=== PATIENT | female | born 1975 | race Caucasian/White ===

== ENCOUNTER 2016-07-11 05:44 | Day surgery (SDC) | payer MEDICAID, OTHER ==
[2016-07-08 15:50] VITALS: Ht 160 cm; Wt 88.0 kg
[2016-07-11] VITALS (11 sets, daily range): BP systolic 114–147; BP diastolic 73–93; PULSE 63–82; RESP 10–19
[~2016-07-11] VITALS: Ht 160 cm; Wt 88.0 kg
[~2016-07-11 05:44] MED LIST: CEPH-443 PO; IBUP-1542 PO; IBUP800T25 PO; TRAM50TA2 PO
[2016-07-11] MEDS ORDERED: OMEP20CA16 PO (06:33)
[2016-07-11] MEDS ORDERED: PROP10TA6 PO (06:33)
[2016-07-11] MEDS ORDERED: LACTATED RINGER'S 1,000 ML IV* SCH (07:00)
[2016-07-11 07:16] LABS: ADD UMIC NO; URINE BILIRUBIN (Dip) NEGATIVE (NEGATIVE); URINE BLOOD (Dip) NEGATIVE (NEGATIVE); URINE COLOR LT. YELLOW (YELLOW); URINE GLUCOSE (Dip) NEGATIVE (NEGATIVE); URINE KETONES (Dip) NEGATIVE (NEGATIVE); URINE LEUKOCYTE ESTERASE (Dip) NEGATIVE (NEGATIVE); URINE NITRITE (Dip) NEGATIVE (NEGATIVE); URINE TOTAL PROTEIN (Dip) NEGATIVE (NEGATIVE); URINE UROBILINOGEN (Dip) 0.2 E.U./dL (0.1-1.0)
--- NOTE | 2016-07-11 07:40 | HPN ---
Date/Time of Note Date/Time of Note DATE: 07/11/16 TIME: 07:40 Interval H&P Admission Note Pt. seen H&P reviewed: No system changes ALEJA GARNICA MD Jul 11, 2016 07:40
[2016-07-11] MEDS ORDERED: morphine SULFATE/PF (10 MG/10 ML) INJ ONE (07:42)
[2016-07-11] MEDS ORDERED: MIDAZOLAM 1 MG/ML 2 ML INJ ONE (07:43)
[2016-07-11] MEDS ORDERED: FENTAnyl 50 MCG/ML VIAL ONE (07:43)
[2016-07-11] MEDS ORDERED: PROPOFOL 20 ML ONE (09:31)
[2016-07-11] MEDS ORDERED: LIDOCAINE 2% (SDV) 5 ML INJ ONE (09:31)
[2016-07-11] MEDS ORDERED: CEFAZOLIN 1 GM INJ ONE (09:31)
[2016-07-11] MEDS ORDERED: ONDANSETRON 4 MG INJ ONE (09:32)
--- NOTE | 2016-07-11 09:42 | PD.PPDC ---
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
--- NOTE | 2016-07-13 11:23 | OPR ---
DATE OF OPERATION: 07/11/2016 PREOPERATIVE DIAGNOSIS: Submucosal uterine fibroid. POSTOPERATIVE DIAGNOSIS: Submucosal uterine fibroid. See pathological report. OPERATION PERFORMED: Hysteroscopic myomectomy of the submucosal fibroid. ANESTHESIA: General. ANESTHESIOLOGIST: Dr. Alcantar. SURGEON: Luan Herrera MD ESTIMATED BLOOD LOSS: Negligible. 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 PROCEDURE: Under appropriate induction of general anesthesia, the patient was placed in the dorsal lithotomy position. Perineal area and vagina wall was prepped and draped in usual aseptic manner. On inspection, the external genitalia revealed no gross abnormality. Bimanual examination, uterus f elt to be approximately 10 weeks of gestational size, form and consistency. There was no palpable a dnexal pathology. Weighted speculum introduced into the vagina. Cervix identified which was parous -appearing. The anterior lip of the cervix was grasped with a single tooth tenaculum. Cervix was d ilated to 6 and tried to insert the hysteroscope, which was unable because of the angle of the inter nal os. I dilated a little more and the scope was inserted. The direction is somewhat distorted be cause of the gravity of the fibroid and also because she also has intramural fibroids. After dilati on, the hysteroscope was reinserted, and prior to insertion of the hysteroscope, the usual way of se tting up the flow, which used the normal saline with a machine by [facility], the inflow and outflow w as connected in usual fashion. The pressure was also set up in the proper level with a calculation of a mean pressure. After the hysteroscope was inserted and the inflow started, which was continuou sly leaking, we tried to reduce the size of the os by multiple instruments. Finally, changing the a ngle, which held the fluid in the uterine cavity and revealed the lesion on the left lateral aspect of this portion. Right ostium was seen, but the left was covered by this lesion. The hysteroscope was replaced and this was connected with the fluid and the procedure was started, which was able to remove from the base with multiple attempts and different angle approaches, successfully removed and this specimen was retrieved and collected in the prepared container, which was preset. No bleeder was noted from the lesion. All of the inflow and outflow calculation deficit was 750. All the ins truments were removed from the operative field. Procedure ended successfully and the patient sent t o the recovery room in stable condition. Dictated By: LUAN CASTELLON/ROSA Conf#: [id number] DID#: [id number]
== END 2016-07-11 11:56 | disposition home or self-care (01) ==
LOC: SDS 05:44
PROVIDERS: ATTEND Obstetrics & Gynecology
DX: D25.0 Submucous leiomyoma of uterus (principal); I10 Essential (primary) hypertension; E11.9 Type 2 diabetes mellitus without complications
CPT/HCPCS: 58558; 81003; 82962; 88304; J0690; J2250; J2405; J3010; Z7512; Z7610; J2274

== ENCOUNTER 2016-08-05 21:57 | Emergency (ER) | payer OTHER ==
[~2016-08-05] VITALS: Ht 160 cm; Wt 88.0 kg
[~2016-08-05 21:57] MED LIST changes: -CEPH-443 PO; -IBUP800T25 PO; +OMEP20CA16 PO; +PROP10TA6 PO
[2016-08-05 22:23] VITALS: Ht 160 cm; Wt 88.0 kg
--- NOTE | 2016-08-05 23:03 | ERA ---
ER Documentation Chief Complaint Date/Time DATE: 08/05/16 TIME: 23:03 Chief Complaint AP HPI The patient is a 41-year-old female, presenting to the ER because of chronic right sided abdominal pain for more than 10 year, however, it is worse for the last 2 weeks, worse with eating. She denies any fever, chills, neck pain, chest pain, dyspnea, vomiting, dysuria, diarrhea, constipation. She does not smoke nor drink Past medical history: Hypertension, anemia Past surgical history: Fibroid, ROS All systems reviewed and are negative except as per history of present illness. Medications Home Meds Active Scripts Ibuprofen* (Motrin*) 600 Mg Tab, 600 MG PO Q6H Y for PAIN AND OR ELEVATED TEMP, #30 TAB Prov:MARGI MURRITEA MD 08/06/16 Tramadol HCl (Tramadol HCl) 50 Mg Tablet, 50 MG PO Q4 Y for PAIN, #20 TAB Prov:SHIRA HALL MD 01/11/16 Ibuprofen* (Motrin*) 600 Mg Tab, 600 MG PO Q6H Y for PAIN AND OR ELEVATED TEMP, #30 TAB Prov:KRISHNA BABB PA-C 11/17/15 Reported Medications Omeprazole* (Omeprazole*) 20 Mg Capsule.dr, 20 MG PO DAILY Y for REFLUX, #30 CAP 07/11/16 Propranolol Hcl* (Propranolol Hcl*) 10 Mg Tablet, 10 MG PO TID, TAB 07/11/16 Allergies Allergies: Coded Allergies: No Known Allergy (Unverified , 07/11/16) PMhx/Soc History of Surgery: Yes (C SECTION) Anesthesia Reaction: No Hx Neurological Disorder: No Hx Respiratory Disorders: No Hx Cardiac Disorders: Yes (HTN) Hx Psychiatric Problems: No Hx Miscellaneous Medical Probl: Yes (ANEMIA) Hx Alcohol Use: No Hx Substance Use: No Hx Tobacco Use: No Physical Exam Vitals Vital Signs Date Time Temp Pulse Resp B/P Pulse Ox O2 Delivery O2 Flow Rate FiO2 08/05/16 22:23 98.5 100 24 128/82 100 Physical Exam Const: No acute distress. Head: Atraumatic. Eyes: Normal Conjunctiva. ENT: Normal External Ears, Nose and Mouth. Neck: Full range of motion. No meningismus. Resp: Clear to auscultation bilaterally. Cardio: Regular rate and rhythm, no murmurs. Abd: Soft, non distended, normal bowel sounds, minimal right-sided discomfort, no rigidity, rebound, CVA tenderness Skin: No petechiae or rashes. Back: No midline or flank tenderness. Ext: No cyanosis, or edema. Neur: Awake and alert. No focal deficit Psych: Normal Mood and Affect. Result Diagram: 08/05/16 2334 08/05/16 2334 Results 24 hrs Laboratory Tests Test 08/05/16 23:34 White Blood Count 6.310^3/ul Red Blood Count 3.9710^6/ul Hemoglobin 9.3g/dl Hematocrit 30.9% Mean Corpuscular Volume 77.8fl Mean Corpuscular Hemoglobin 23.4pg Mean Corpuscular Hemoglobin Concent 30.1g/dl Red Cell Distribution Width 21.8% Platelet Count 28104^3/UL Mean Platelet Volume 10.5fl Neutrophils % 49.4% Lymphocytes % 38.5% Monocytes % 10.5% Eosinophils % 1.0% Basophils % 0.3% Nucleated Red Blood Cells % 0.0/100WBC Neutrophils # 3.110^3/ul Lymphocytes # 2.410^3/ul Monocytes # 0.710^3/ul Eosinophils # 0.110^3/ul Basophils # 0.010^3/ul Nucleated Red Blood Cells # 0.010^3/ul Bedside Urine pH (LAB) 7.0 Bedside Urine Protein (LAB) Negative Bedside Urine Glucose (UA) Negative Bedside Urine Ketones (LAB) Negative Bedside Urine Blood Trace-intact Bedside Urine Nitrite (LAB) Negative Bedside Urine Leukocyte Esterase (L Trace Sodium Level 142mmol/L Potassium Level 3.9mmol/L Chloride Level 102mmol/L Carbon Dioxide Level 26mmol/L Anion Gap 18 Blood Urea Nitrogen 20mg/dl Creatinine 0.84mg/dl Glucose Level 98mg/dl Calcium Level 9.2mg/dl Total Bilirubin 0.5mg/dl Direct Bilirubin 0.00mg/dl Indirect Bilirubin 0.5mg/dl Aspartate Amino Transf (AST/SGOT) 75IU/L Alanine Aminotransferase (ALT/SGPT) 57IU/L Alkaline Phosphatase 134IU/L Total Protein 8.1g/dl Albumin 4.5g/dl Globulin 3.60g/dl Albumin/Globulin Ratio 1.25 Lipase 135U/L Procedures/MDM MEDICAL MAKING DECISION: The patient is a 41-year-old female, presenting with acute on chronic right-sided abdominal pain of unclear etiology. She remains well in the emergency department and is stable for outpatient follow-up. The differential diagnoses considered include but are not limited to cholelithiasis , cholecystitis, cystitis, pancreatitis, hepatitis, gastritis, peptic ulcer disease, gastric ulcer, appendicitis, diverticulitis, cholangitis, choledocholithiasis, partial small bowel obstruction. Departure Diagnosis: Primary Impression: Abdominal pain Additional Impression: Anemia Condition: Good Comments I discussed the findings with the patient. I advised the patient to follow-up with the primary physician in about 1-2 days, sooner if needed and return if any concern. MARGI MURRIETA MD Aug 05, 2016 23:03
[2016-08-05 23:34] LABS: URINE BLOOD (Dip) POC Trace-intact (NEGATIVE)
[2016-08-05 23:48] LABS: ADD SCAN DIFF NO
[2016-08-05 23:51] LABS: BASOPHILS % 0.3 % (0.0-2.0); EOSINOPHILS # 0.1 10^3/ul (0.0-0.5); HEMATOCRIT 30.9 % (37.0-47.0); HEMOGLOBIN 9.3 g/dl (12.0-16.0); LYMPHOCYTES # 2.4 10^3/ul (0.8-2.9); LYMPHOCYTES % 38.5 % (15.0-51.0); MEAN CORPUSCULAR HEMOGLOBIN 23.4 pg (29.0-33.0); MEAN CORPUSCULAR HGB CONC 30.1 g/dl (32.0-37.0); MEAN CORPUSCULAR VOLUME 77.8 fl (82.0-101.0); MEAN PLATELET VOLUME 10.5 fl (7.4-10.4); MONOCYTE # 0.7 10^3/ul (0.3-0.9); MONOCYTES % 10.5 % (0.0-11.0); NEUTROPHIL # 3.1 10^3/ul (1.6-7.5); NEUTROPHILS % 49.4 % (39.0-77.0); PLATELET COUNT 368 10^3/UL (140-415); RED BLOOD COUNT 3.97 10^6/ul (4.20-5.40); RED CELL DISTRIBUTION WIDTH 21.8 % (11.5-14.5); WHITE BLOOD COUNT 6.3 10^3/ul (4.8-10.8)
[2016-08-05 23:58] LABS: ALBUMIN 4.5 g/dl (3.3-4.9)
[2016-08-05 23:59] LABS: POTASSIUM 3.9 mmol/L (3.5-5.1)
[2016-08-06 00:01] LABS: ALBUMIN/GLOBULIN RATIO 1.25; BILIRUBIN,INDIRECT 0.5 mg/dl (0-1.1); BILIRUBIN,TOTAL 0.5 mg/dl (0.2-1.3); CALCIUM 9.2 mg/dl (8.4-10.2); CREATININE 0.84 mg/dl (0.44-1.00); TOTAL PROTEIN 8.1 g/dl (6.1-8.1)
[2016-08-06] MEDS ORDERED: IBUP-1542 PO (02:51)
[2016-08-06 03:07] VITALS: BP 126/83; PULSE 89; RESP 18
== END 2016-08-06 03:08 | disposition home or self-care (01) ==
LOC: FTE 21:57
DX: R10.9 Unspecified abdominal pain (principal); D64.9 Anemia, unspecified; I10 Essential (primary) hypertension
CPT/HCPCS: 36415; 80053; 81003; 83690; 85025; Z7502; 99283

== ENCOUNTER 2016-10-13 07:38 | Day surgery (SDC) | payer OTHER ==
[2016-10-13] VITALS (20 sets, daily range): BP systolic 127–156; BP diastolic 68–94; PULSE 16–88; RESP 12–21; Ht 157.5 cm; Wt 89.7 kg
[~2016-10-13] VITALS: Ht 157.5 cm; Wt 89.7 kg
[~2016-10-13 07:38] MED LIST changes: +CEFAZOLIN 2 GM/50 ML (PMX) 50 ML IVPB SCH; +SOD CHLORIDE 0.9% 1,000 ML IV SCH
[2016-10-13] MEDS ORDERED: ROCURONIUM 50 MG INJ ONE (09:23)
[2016-10-13] MEDS ORDERED: MIDAZOLAM 1 MG/ML 2 ML INJ ONE (09:23)
[2016-10-13] MEDS ORDERED: CEFAZOLIN 1 GM INJ ONE (09:23)
[2016-10-13] MEDS ORDERED: PROPOFOL 20 ML ONE (09:23)
[2016-10-13] MEDS ORDERED: ROPIVACAINE 0.5 % 30 ML VIAL ONE (09:24)
[2016-10-13] MEDS ORDERED: FENTAnyl 50 MCG/ML VIAL ONE (09:24)
[2016-10-13] MEDS ORDERED: BUPIVACAINE 0.25% (MPF) 30 ML INJ ONE (10:00)
[2016-10-13] MEDS ORDERED: ONDANSETRON 4 MG INJ ONE (10:42)
[2016-10-13] MEDS ORDERED: KETOROLAC 30 MG INJ ONE (10:42)
[2016-10-13] MEDS ORDERED: DEXAMETHASONE 4 MG/ML 1 ML INJ ONE (10:42)
[2016-10-13] MEDS ORDERED: METOCLOPRAMIDE 10 MG INJ ONE (10:42)
[2016-10-13] MEDS ORDERED: NEOSTIGMINE 3 MG/3 ML SYRINGE ONE (10:44)
[2016-10-13] MEDS ORDERED: GLYCOPYRROLATE 0.4 MG INJ ONE (10:44)
--- NOTE | 2016-10-13 10:47 | OPR ---
Date/Time of Note Date/Time of Note DATE: 10/13/16 TIME: 10:46 Operative Report Preoperative Diagnosis symptomatic gallstones Postoperative Diagnosis same Operation/Procedure Performed lap kait Surgeon: Sarthak LAGUNAS Specimens gallbladder Sarthak LAGUNAS Oct 13, 2016 10:47
[2016-10-13] MEDS ORDERED: METOCLOPRAMIDE 10 MG INJ IV PRN (11:00)
[2016-10-13] MEDS ORDERED: HYDROCODONE/APAP (5/325) TAB PO ONE (11:00)
[2016-10-13] MEDS ORDERED: HYDROmorphONE (0.2 MG/ML) 10ML SYG IV PRN ×3 (11:00)
[2016-10-13] MEDS ORDERED: LABETALOL HCL 20MG INJ IV PRN (11:00)
[2016-10-13] MEDS ORDERED: DIPHENHYDRAMINE 50 MG INJ IV PRN (11:00)
[2016-10-13] MEDS ORDERED: EPHEDrine SULFATE 50 MG/5 ML SYG IV PRN (11:00)
[2016-10-13] MEDS ORDERED: MEPERIDINE 25 MG INJ IV PRN (11:00)
[2016-10-13] MEDS ORDERED: ONDANSETRON 4 MG INJ IV PRN (11:00)
[2016-10-13] MEDS ORDERED: morphine (1 MG/ML) 10ML SYRINGE IV PRN ×3 (11:00)
--- NOTE | 2016-10-13 11:17 | OPR ---
DATE OF OPERATION: 10/13/2016 INDICATION: This is a 41-year-old female with symptomatic gallstones. She requests surgical excisi on of her gallbladder. Risks, alternatives, benefits, and personnel were discussed with the patient . Potential complications including, but not limited to, bleeding, infection port site hernia, intr a-abdominal organ injury, common bile duct injury were discussed with the patient. The patient expr essed understanding and consents to the operation. PREOPERATIVE DIAGNOSIS: Symptomatic gallstones. POSTOPERATIVE DIAGNOSIS: Symptomatic gallstones. OPERATION PERFORMED: Laparoscopic cholecystectomy. SURGEON: Sylvie Montenegro MD SPECIMEN: Gallbladder. COMPLICATIONS: None. ANESTHESIA: General. PROCEDURE: The patient was taken to the OR and prepped and draped in the usual sterile fashion. [place] rgical timeout was performed. IV antibiotics given. Supraumbilical midline incision is made with a 15 blade. Using dissection cautery was carried down to the fascia which was divided in the midline . Stay sutures were placed on each side with 0 Vicryl stay sutures. Port balloon [place] trocar is introduced. Pneumoperitoneum is established. Midepigastric 12 mm optical trocar and right upper qu adrant and right upper flank 5 mm optical trocars were placed under direct visualization. Upon initial inspection, there were some adhesions to the gallbladder which were taken down bluntly. The cystic duct was identified. The critical view was established. The cystic duct was divided u sing a 35 mm Yancey vascular stapler. Clips were placed to reinforce the staple line. The cystic artery was identified and divided with 3 clips proximal, 1 clip distal. Gallbladder was taken off t he gallbladder bed. There was good hemostasis. Gallbladder was retrieved using Endo Catch bag. Po rts were removed under direct visualization. The 0 Vicryl stay sutures were tied down. Skin was cl osed using skin mary ellen. Local anesthesia was injected. Dry dressings were applied. Dictated By: SYLVIE CABRAL/ROSA Conf#: [id number] DID#: [id number]
== END 2016-10-13 13:00 | disposition home or self-care (01) ==
LOC: SDS 07:38
PROVIDERS: ATTEND Surgery
DX: K80.20 Calculus of gallbladder without cholecystitis without obstruction (principal); K80.10 Calculus of gallbladder with chronic cholecystitis without obstruction; E11.9 Type 2 diabetes mellitus without complications; I10 Essential (primary) hypertension; E66.9 Obesity, unspecified; Z68.36 Body mass index [BMI] 36.0-36.9, adult
CPT/HCPCS: 47562; 84703; 88304; J0690; J1100; J1885; J2250; J2405; J2710; J2765; J2795; J3010; Z7512; Z7610

== ENCOUNTER 2017-06-29 06:07 | Inpatient (IN) | END 2017-07-02 16:30 | disposition home or self-care (01) | DRG 743 ==

== ENCOUNTER 2017-10-24 15:26 | Emergency (ER) | END 2017-10-24 17:45 | disposition home or self-care (01) ==

== ENCOUNTER 2018-02-01 15:31 | Emergency (ER) | END 2018-02-01 18:17 | disposition home or self-care (01) ==

== ENCOUNTER 2018-02-04 12:48 | Emergency (ER) | END 2018-02-04 13:25 | disposition home or self-care (01) ==